=== PATIENT | male | born 1950 | race Caucasian/White ===

== ENCOUNTER 2016-12-02 09:40 | Outpatient (CLI) | payer MEDICARE, BC ==
[2014-07-16 22:52] VITALS: O2SAT 96
== END 2016-12-02 09:41 | disposition home or self-care (01) | DRG 554 ==
LOC: CONVCARE 09:40
PROVIDERS: ATTEND Orthopaedic Surgery
DX: M17.12 Unilateral primary osteoarthritis, left knee (principal)
CPT/HCPCS: 73564